=== PATIENT | male | born 1995 | race Caucasian/White ===

== ENCOUNTER 2019-08-30 16:03 | Emergency (ER) | payer OTHER ==
--- NOTE | 2019-08-30 16:37 | ED Physician Documentation ---
History of Present Illness - Stated complaint Stated Complaint: SI / MHE - Chief complaint Chief Complaint: MHE - Additonal information Additional information: This is a 24-year-old male with a history of some depression/anxiety who presents with an episode of Self harming thoughts last night which is improving. Patient states that in the past he has done some cutting, but not for years. Yesterday he got talked to by his LPO because he apparently did not do his work properly, and this caused him to "get up in my head". He was frustrated with the situation and last night he realized that he was getting close to cutting himself again so he called a friend who stayed with him last night. He did not take any pills or cut himself. He currently is feeling better though he is still frustrated by the situation at his job in the . He denies suicidal ideation, Will not cut himself if he goes home. He was previously on Zoloft, but discontinued this after month when he was feeling fine, and has been off it for months without any issue up until now.He will drink 1 glass of wine around once a week, but no alcohol recently. He denies any other drug use. Review of Systems Neurologic: denies: Generalized weakness Psychiatric: reports: Depressed PD PAST MEDICAL HISTORY - Past Medical History Psych: Depression, Anxiety - Allergies Allergies/Adverse Reactions: Allergies Allergy/AdvReac Type Severity Reaction Status Date / Time No Known Drug Allergies Allergy Verified 08/30/19 16:14 - Living Situation Living Arrangement: reports: At home - Social History Does the pt drink ETOH?: Yes ETOH Use: Wine Does the pt have substance abuse?: No PD ED PE NORMAL - Vitals Vital signs reviewed: Yes - General General: Alert and oriented X 3 - HEENT HEENT: Atraumatic - Neck Neck: Supple, no meningeal sign - Cardiac Cardiac: RRR - Respiratory Respiratory: No respiratory distress - Extremities Extremities: No deformity - Neuro Neuro: Alert and oriented X 3 - Psych Psych: Normal mood, Normal affect, Other (Appropriate and cooperative) Results - Vitals Vitals: Oxygen O2 Source Room air - Labs Labs: Laboratory Tests 08/30/19 08/30/19 08/30/19 17:07 17:07 17:41 WBC 7.2 RBC 4.96 Hgb 15.3 Hct 45.1 MCV 90.9 MCH 30.8 MCHC 33.9 RDW 12.0 Plt Count 298 MPV 8.8 Neut # (Auto) 4.5 Lymph # (Auto) 2.0 [place] # (Auto) 0.6 Eos # (Auto) 0.0 Baso # (Auto) 0.1 Absolute Nucleated RBC 0.00 Nucleated RBC % 0.0 Sodium 139 Potassium 4.3 Chloride 104 Carbon Dioxide 27 Anion Gap 8.0 BUN 9 Creatinine 0.8 Estimated GFR (MDRD) 121 Glucose 102 H Calcium 9.4 TSH 1.34 PD MEDICAL DECISION MAKING - ED course Complexity details: considered differential (Depression, anxiety, SI) ED course: Pt presents with resolved thoughts of self-harm, without any action taken. He has excellent insight into his thoughts and behavior, and has already taken steps towards improving his situation by reaching out to friends. He has outpatient counseling set-up, and will contact his PCP or mental health professional about restarting his anti-depressant. He is not suicidal, feels safe going home, and contracts for safety. It sounds like more than anything he has been frustrated with some interpersonal issues at work. After emphathic listening and talking with him he is already feeling better. I provided him with resources including the suicide prevention hotline, discussed home safety, and strict return precautions with any worsening. Pt agrees and felt safe and ready to go home. He was discharged. Departure - Departure Disposition: 01 Home, Self Care Clinical Impression: Thoughts of self harm Condition: Good Instructions: ED Depression Comments: You were seen today because you were having thoughts of harming yourself. I am glad that you are feeling better, but if you are having recurring thoughts of hurting yourself, please call the suicide prevention hotline ( ), reach out to 911, or return to the emergency department. We are always here to help if you need it! Please follow-up with your outpatient provider as scheduled next week. Continuing your prescribed Zoloft seems reasonable, please check in with your mental health professional or primary care provider about this as well. Forms: Activity restrictions Discharge Date/Time: 08/30/19 18:21
[2019-08-30 17:11] LABS: BASOPHILS # (AUTO) 0.1 10^3/uL (0.0-0.1); BASOPHILS % (AUTO) 0.8 %; EOSINOPHILS % (AUTO) 0.4 %; HGB - HEMOGLOBIN 15.3 g/dL (14.0-18.0); LYMPHOCYTES % (AUTO) 27.8 %; MEAN CORPUSCULAR HEMOGLOBIN 30.8 pg (27.0-31.0); MEAN CORPUSCULAR HGB CONC 33.9 g/dL (32.0-36.0); MEAN CORPUSCULAR VOLUME 90.9 fL (80.0-94.0); MEAN PLATELET VOLUME 8.8 fL (7.4-11.4); MONOCYTES # (AUTO) 0.6 10^3/uL (0.0-1.0); MONOCYTES % (AUTO) 8.2 %; NEUTROPHILS # (AUTO) 4.5 10^3/uL (1.5-6.6); PLT - PLATELET COUNT 298 10^3/uL (130-450); RED BLOOD COUNT 4.96 10^6/uL (4.70-6.10); WHITE BLOOD COUNT 7.2 x10^3/uL (4.8-10.8)
[2019-08-30 17:19] LABS: CALCIUM 9.4 mg/dL (8.5-10.3); CREATININE 0.8 mg/dL (0.6-1.2)
[2019-08-30 17:54] VITALS: BP 128/81
== END 2019-08-30 18:21 | disposition home or self-care (01) ==
LOC: ED 16:03
DX: F32.9 Major depressive disorder, single episode, unspecified (principal); F41.9 Anxiety disorder, unspecified; R45.851 Suicidal ideations
CPT/HCPCS: 36415; 80048; 84443; 85025; 99283

== ENCOUNTER 2020-01-18 18:20 | Emergency (ER) | payer OTHER ==
[2020-01-18 18:34] VITALS: BP 115/71
[2020-01-18] MEDS ORDERED: KETOROLAC 30 MG/ML VIAL IM STA (19:06)
[2020-01-18] MEDS ORDERED: METOCLOPRAMIDE 10 MG TABLET PO STA (19:08)
--- NOTE | 2020-01-18 19:32 | ED Physician Documentation ---
History of Present Illness - Stated complaint Stated Complaint: HEADACHE,NUMBNESS - Chief complaint Chief Complaint: General - History obtained from History obtained from: Patient (24 yo M from the [employer] presents with report of severe frontal headache for several days, now accompanied by generalized body numbness. No vision changes, facial numbness, light or sound sensitivity, or n/v. He also is reporting "severe shortness of breath," and feels tired when he walked around his house this AM. He has no cough or fever, no congestion or sore throat, no chest pain, abd pain, n/v/d. He was seen at the [facility] and received some headache medication but states it didn't help. He was also tested for strep throat which he states was negative. He reports that he was told he had an URI, he was not tested for Covid.) Review of Systems Constitutional: reports: Fatigue. denies: Fever, Chills Eyes: reports: Reviewed and negative Ears: reports: Reviewed and negative Nose: reports: Reviewed and negative Throat: reports: Reviewed and negative Cardiac: reports: Reviewed and negative Respiratory: reports: Dyspnea. denies: Cough, Hemoptysis, Wheezing GI: reports: Reviewed and negative : reports: Reviewed and negative Skin: reports: Reviewed and negative Neurologic: reports: Generalized weakness, Numbness Psychiatric: reports: Reviewed and negative PD PAST MEDICAL HISTORY - Past Medical History Psych: Depression, Anxiety - Past Surgical History Past Surgical History: No - Present Medications Home Medications: Ambulatory Orders Medication Instructions Recorded Confirmed Sertraline HCl [Zoloft] 100 mg DAILY 01/18/20 01/18/20 - Allergies Allergies/Adverse Reactions: Allergies Allergy/AdvReac Type Severity Reaction Status Date / Time No Known Drug Allergies Allergy Verified 01/18/20 18:33 - Social History Does the pt smoke?: No Smoking Status: Never smoker Does the pt drink ETOH?: Yes Does the pt have substance abuse?: No PD ED PE NORMAL - Vitals Vital signs reviewed: Yes - General General: Alert and oriented X 3, No acute distress, Well developed/nourished - HEENT HEENT: Atraumatic, PERRL, EOMI, Ears normal, Moist mucous membranes, Pharynx benign, Dentition benign - Neck Neck: Supple, no meningeal sign, No adenopathy, No JVD - Cardiac Cardiac: RRR, No murmur, No gallop, No rub, Strong equal pulses - Respiratory Respiratory: No respiratory distress, Clear bilaterally - Abdomen Abdomen: Normal bowel sounds, Non tender, Non distended - Derm Derm: Normal color, Warm and dry, No rash - Extremities Extremities: No deformity, No tenderness to palpate, Normal ROM s pain, No edema, No calf tenderness / cord - Neuro Neuro: Alert and oriented X 3, counterperson 2-12 intact, No motor deficit, No sensory deficit, Normal speech Eye Opening: Spontaneous Motor: Obeys Commands Verbal: Oriented GCS Score: 15 - Psych Psych: Normal mood, Normal affect Results - Vitals Vitals: Vital Signs - 24 hr 01/18/20 01/18/20 18:26 18:55 Temperature 36.6 C 36.6 C Heart Rate 87 87 Respiratory 16 16 Rate Blood Pressure 115/71 115/71 O2 Saturation 99 99 Oxygen O2 Source Room air PD MEDICAL DECISION MAKING - ED course Complexity details: reviewed old records, reviewed results, re-evaluated marcin ramírez, considered differential, d/w patient ED course: 24 yo M presented w/ headache accompanied by report of general body numbness but normal neuro exam. He has no hx/o migraines but was recently given some headache medication after [facility]. He was concerned about Covid and reporting "severe shortness of breath" but vss, no tachypnea and appears very comfortable on exam, there is no indication of air hunger. He is ambulating staring at his phone. His lungs are clear. He received 30mg of IM toradol and 10mg of PO reglan for his headache and shortly thereafter his symptoms reportedly resolved and he states he is feeling much better. We discussed Covid testing and I do not think it is indicated as pt sx resolved w/minimal intervention. Possible migraine vs tension headache, advised rest, prn meds he has at home, oral fluids. If worsening sx, return to the base clinic or ER. I advised to stay at home and self isolate until sx resolve. Departure - Departure Disposition: Home, Self Care Clinical Impression: Headache Qualifiers: Headache type: unspecified Headache chronicity pattern: acute headache Intractability: not intractable Qualified Code(s): R51 - Headache Condition: Good Instructions: ED Headache Tension, ED Headache Migraine
== END 2020-01-18 19:45 | disposition home or self-care (01) ==
LOC: ED 18:20
DX: R51 Headache (principal)
CPT/HCPCS: 96372; 99283; 99284; A9270

== ENCOUNTER 2022-07-22 14:10 | Emergency (ER) | payer OTHER ==
--- NOTE | 2022-07-22 14:52 | ED Physician Documentation ---
PD HPI MHE - Stated complaint Stated Complaint: SI - Chief complaint Chief Complaint: MHE - History obtained from History obtained from: Patient - Additional information Additional information: 26-year-old gentleman who is active duty in the [employer] presents with longstanding suicidal ideation. He now has a plan starting today for slitting his wrists and was sent here by the [employer] [facility] for medical clearance and hopeful transfer to [facility]. He has no comorbidities. No drug or alcohol use. Review of Systems Ten Systems: 10 systems reviewed and negative Cardiac: reports: Reviewed and negative Respiratory: reports: Reviewed and negative PD PAST MEDICAL HISTORY - Past Medical History Psych: Depression, Anxiety - Past Surgical History Past Surgical History: No - Present Medications Home Medications: Ambulatory Orders Medication Instructions Recorded Confirmed Sertraline HCl [Zoloft] 100 mg DAILY 01/18/20 07/22/22 ARIPiprazole [Abilify] 5 mg PO QPM 07/22/22 07/22/22 Doxepin [SINEquan] 50 mg PO QPM PRN 07/22/22 07/22/22 busPIRone [Buspar] 5 mg PO TID 07/22/22 07/22/22 lamoTRIgine [LaMICtal] 25 mg PO DAILY 07/22/22 07/22/22 - Allergies Allergies/Adverse Reactions: Allergies Allergy/AdvReac Type Severity Reaction Status Date / Time No Known Drug Allergies Allergy Verified 01/18/20 18:33 - Social History Does the pt smoke?: Yes Smoking Status: Current every day smoker Does the pt drink ETOH?: Yes Does the pt have substance abuse?: No PD ED PE NORMAL - Vitals Vital signs reviewed: Yes - General General: Alert and oriented X 3, No acute distress - HEENT HEENT: PERRL, EOMI - Neck Neck: Supple, no meningeal sign, No bony TTP - Cardiac Cardiac: RRR, No murmur - Respiratory Respiratory: No respiratory distress, Clear bilaterally - Abdomen Abdomen: Soft, Non tender - Back Back: No CVA TTP, No spinal TTP - Derm Derm: Normal color, Warm and dry - Extremities Extremities: No edema, No calf tenderness / cord - Neuro Neuro: Alert and oriented X 3, Normal speech Results - Vitals Vitals: Vital Signs - 24 hr 07/22/22 14:18 Temperature 37.0 C Heart Rate 78 Respiratory 19 Rate Blood Pressure 130/75 O2 Saturation 99 Oxygen O2 Source Room air - Labs Labs: Laboratory Tests 07/22/22 07/22/22 07/22/22 11:34 11:34 11:34 WBC TNP RBC TNP Hgb TNP Hct TNP MCV TNP MCH TNP MCHC TNP RDW TNP Plt Count TNP MPV TNP Neut # (Auto) TNP Lymph # (Auto) TNP [place] # (Auto) TNP Eos # (Auto) TNP Baso # (Auto) TNP Absolute Nucleated RBC TNP Nucleated RBC % TNP Sodium TNP Potassium TNP Chloride TNP Carbon Dioxide TNP Anion Gap TNP BUN TNP Creatinine TNP Estimated GFR (MDRD) TNP Glucose TNP Calcium TNP Magnesium TNP Total Bilirubin TNP AST TNP ALT TNP Alkaline Phosphatase TNP Total Protein TNP Albumin TNP Globulin TNP Albumin/Globulin Ratio TNP Triglycerides TNP Cholesterol TNP LDL Cholesterol, Calc TNP VLDL Cholesterol TNP HDL Cholesterol TNP LDL/HDL Ratio TNP Cholesterol/HDL Ratio TNP Lipase TSH TNP Urine Color Urine Clarity Urine pH Ur Specific [place] Urine Protein Urine Glucose (UA) Urine Ketones Urine Occult Blood Urine Nitrite Urine Bilirubin Urine Urobilinogen Ur Leukocyte Esterase Ur Microscopic Review Urine Culture Comments Salicylates Urine Opiates Screen Ur Oxycodone Screen Urine Methadone Screen Ur Propoxyphene Screen Acetaminophen Ur Barbiturates Screen Ur Tricyclics Screen Ur Phencyclidine Scrn Ur Amphetamine Screen U Methamphetamines Scrn U Benzodiazepines Scrn Urine Cocaine Screen U Cannabinoids Screen Ethyl Alcohol SARS-CoV-2 (PCR) 07/22/22 07/22/22 07/22/22 14:04 14:04 14:55 WBC 8.3 RBC 5.17 Hgb 16.0 Hct 46.9 MCV 90.7 MCH 30.9 MCHC 34.1 RDW 12.0 Plt Count 344 MPV 8.9 Neut # (Auto) 5.8 Lymph # (Auto) 1.8 [place] # (Auto) 0.6 Eos # (Auto) 0.0 Baso # (Auto) 0.1 Absolute Nucleated RBC 0.00 Nucleated RBC % 0.0 Sodium Potassium Chloride Carbon Dioxide Anion Gap BUN Creatinine Estimated GFR (MDRD) Glucose Calcium Magnesium Total Bilirubin AST ALT Alkaline Phosphatase Total Protein Albumin Globulin Albumin/Globulin Ratio Triglycerides Cholesterol LDL Cholesterol, Calc VLDL Cholesterol HDL Cholesterol LDL/HDL Ratio Cholesterol/HDL Ratio Lipase TSH Urine Color YELLOW Urine Clarity CLEAR Urine pH 6.0 Ur Specific [place] 1.020 Urine Protein NEGATIVE Urine Glucose (UA) NEGATIVE Urine Ketones NEGATIVE Urine Occult Blood NEGATIVE Urine Nitrite NEGATIVE Urine Bilirubin NEGATIVE Urine Urobilinogen 0.2 (NORMAL) Ur Leukocyte Esterase NEGATIVE Ur Microscopic Review NOT INDICATED Urine Culture Comments NOT INDICATED Salicylates Urine Opiates Screen NEGATIVE Ur Oxycodone Screen NEGATIVE Urine Methadone Screen NEGATIVE Ur Propoxyphene Screen NEGATIVE Acetaminophen Ur Barbiturates Screen NEGATIVE Ur Tricyclics Screen POSITIVE H Ur Phencyclidine Scrn NEGATIVE Ur Amphetamine Screen NEGATIVE U Methamphetamines Scrn NEGATIVE U Benzodiazepines Scrn NEGATIVE Urine Cocaine Screen NEGATIVE U Cannabinoids Screen NEGATIVE Ethyl Alcohol SARS-CoV-2 (PCR) 07/22/22 07/22/22 07/22/22 14:55 14:55 16:12 WBC RBC Hgb Hct MCV MCH MCHC RDW Plt Count MPV Neut # (Auto) Lymph # (Auto) [place] # (Auto) Eos # (Auto) Baso # (Auto) Absolute Nucleated RBC Nucleated RBC % Sodium 139 Potassium 4.3 Chloride 103 Carbon Dioxide 26 Anion Gap 10.0 BUN 15 Creatinine 0.9 Estimated GFR (MDRD) 104 Glucose 98 Calcium 10.0 Magnesium Total Bilirubin 0.6 AST 33 ALT 77 H Alkaline Phosphatase 57 Total Protein 8.1 Albumin 5.2 Globulin 2.9 Albumin/Globulin Ratio 1.8 Triglycerides Cholesterol LDL Cholesterol, Calc VLDL Cholesterol HDL Cholesterol LDL/HDL Ratio Cholesterol/HDL Ratio Lipase 28 TSH 1.88 Urine Color Urine Clarity Urine pH Ur Specific [place] Urine Protein Urine Glucose (UA) Urine Ketones Urine Occult Blood Urine Nitrite Urine Bilirubin Urine Urobilinogen Ur Leukocyte Esterase Ur Microscopic Review Urine Culture Comments Salicylates < 6.0 Urine Opiates Screen Ur Oxycodone Screen Urine Methadone Screen Ur Propoxyphene Screen Acetaminophen < 10 L Ur Barbiturates Screen Ur Tricyclics Screen Ur Phencyclidine Scrn Ur Amphetamine Screen U Methamphetamines Scrn U Benzodiazepines Scrn Urine Cocaine Screen U Cannabinoids Screen Ethyl Alcohol < 5.0 SARS-CoV-2 (PCR) NOT DETECTED PD MEDICAL DECISION MAKING - ED course ED course: 26-year-old gentleman who is active duty [employer] presents for suicidal ideation. He is medically stable for psychiatric transport and accepted by nurse practitioner [place] to [facility] at 1650. Departure - Departure Disposition: 65 Psych Hosp/Unit DC/Xfer Clinical Impression: Suicidal ideation Condition: Good
[2022-07-22 15:04] LABS: BASOPHILS # (AUTO) 0.1 10^3/uL (0.0-0.1); BASOPHILS % (AUTO) 0.8 %; EOSINOPHILS % (AUTO) 0.4 %; HCT - HEMATOCRIT 46.9 % (42.0-52.0); LYMPHOCYTES # (AUTO) 1.8 10^3/uL (1.5-3.5); LYMPHOCYTES % (AUTO) 21.3 %; MEAN CORPUSCULAR HEMOGLOBIN 30.9 pg (27.0-31.0); MEAN CORPUSCULAR HGB CONC 34.1 g/dL (32.0-36.0); MEAN CORPUSCULAR VOLUME 90.7 fL (80.0-94.0); MEAN PLATELET VOLUME 8.9 fL (7.4-11.4); MONOCYTES # (AUTO) 0.6 10^3/uL (0.0-1.0); MONOCYTES % (AUTO) 7.1 %; NEUTROPHILS # (AUTO) 5.8 10^3/uL (1.5-6.6); NEUTROPHILS % (AUTO) 69.4 %; PLT - PLATELET COUNT 344 10^3/uL (130-450); RED BLOOD COUNT 5.17 10^6/uL (4.70-6.10); WHITE BLOOD COUNT 8.3 x10^3/uL (4.8-10.8)
[2022-07-22 15:17] LABS: ACETAMINOPHEN < 10 ug/mL (10-30); ALBUMIN 5.2 g/dL (3.2-5.5); ALBUMIN/GLOBULIN RATIO 1.8 (1.0-2.2); ALKALINE PHOSPHATASE 57 IU/L (42-121); ALT ALANINE AMINOTRANSFERASE 77 IU/L (10-60); AST ASPARTATE AMINOTRANSFERASE 33 IU/L (10-42); BILIRUBIN,TOTAL 0.6 mg/dL (0.2-1.0); BUN - BLOOD UREA NITROGEN 15 mg/dL (6-20); CARBON DIOXIDE - CO2 26 mmol/L (21-32); CHLORIDE 103 mmol/L (101-111); CREATININE 0.9 mg/dL (0.6-1.2); ETOH - ETHANOL < 5.0 mg/dL; GFR - MDRD 104 (>89); GLUCOSE 98 mg/dL (70-100); LIPASE 28 U/L (22-51); POTASSIUM 4.3 mmol/L (3.5-5.0); SALICYLATE < 6.0 mg/dL; SODIUM 139 mmol/L (135-145); TOTAL PROTEIN 8.1 g/dL (6.7-8.2)
[2022-07-22 15:33] LABS: MUDS CUTOFF CONCENTRATIONS CUTOFF CONC BELOW:
[2022-07-22] MEDS ORDERED: NICOTINE 14 MG PATCH TOP STA (15:34)
[2022-07-22 15:35] LABS: BILIRUBIN,URINE NEGATIVE (NEGATIVE); GLUCOSE, URINE (UA) NEGATIVE (NEGATIVE); KETONES,URINE (UA) NEGATIVE (NEGATIVE); LEUKOCYTE ESTERASE, URINE NEGATIVE (NEGATIVE); NITRITE,URINE NEGATIVE (NEGATIVE); OCCULT BLOOD,URINE NEGATIVE (NEGATIVE); PROTEIN,URINE NEGATIVE (NEGATIVE); UROBILINOGEN,URINE 0.2 (NORMAL) E.U./dL (NORMAL)
[2022-07-22 15:44] LABS: CLARITY,URINE CLEAR (CLEAR)
[2022-07-22 15:49] LABS: AMPHETAMINE SCREEN,URINE NEGATIVE (NEGATIVE); BARBITURATE SCREEN,UR NEGATIVE (NEGATIVE); BENZODIAZEPINES SCREEN, URINE NEGATIVE (NEGATIVE); COCAINE SCREEN URINE NEGATIVE (NEGATIVE); METHADONE SCREEN, URINE NEGATIVE (NEGATIVE); METHAMPHETAMINES SCREEN, URINE NEGATIVE (NEGATIVE); OPIATE SCREEN, URINE NEGATIVE (NEGATIVE); OXYCODONE SCREEN, URINE NEGATIVE (NEGATIVE); PROPOXYPHENE SCREEN, URINE NEGATIVE (NEGATIVE); THC CANNABINOID SCREEN, URINE NEGATIVE (NEGATIVE); TRICYCLIC ANTIDEPRESSANT,URINE POSITIVE (NEGATIVE)
[2022-07-22] MEDS ORDERED: lamoTRIgine 25 MG TABLET PO STA (18:30)
[2022-07-22] MEDS ORDERED: busPIRone 5 MG TABLET PO STA (18:30)
[2022-07-22] MEDS ORDERED: DOXEPIN 25 MG CAPSULE PO STA (18:30)
[2022-07-22] MEDS ORDERED: SERTRALINE 50 MG TABLET PO STA (18:30)
[2022-07-22] MEDS ORDERED: ARIPiprazole 5 MG TABLET PO STA (18:30)
[2022-07-22 18:50] VITALS: BP 152/80
== END 2022-07-22 19:23 ==
LOC: EDUNIT# → ED 14:10
DX: R45.851 Suicidal ideations (principal); F32.A Depression, unspecified; F41.9 Anxiety disorder, unspecified; F17.200 Nicotine dependence, unspecified, uncomplicated
CPT/HCPCS: 36415; 80053; 80306; 80307; 80320; 80329; 81003; 83690; 84443; 85025; 87635; 99283; 99285; A9270; 80061; 81001; 82306; 83721; 83735; 87086